=== PATIENT | female | born 1990 | race Two or more races ===

== ENCOUNTER 2021-03-25 08:05 | Inpatient (IN) ==
[2021-03-25] MEDS ORDERED: OXYTOCIN 30 UNITS/500 ML BAG IV PRN ×3 (08:32→16:53)
[2021-03-25 08:56] LABS: Hematocrit (blood only) 33.9 % (37-47); Hemoglobin 11.1 g/dL (12.0-16.0); Mean Corpuscular Hgb Conc 32.7 g/dL (32-36); Mean Corpuscular Volume 82.5 fL (80-100); Platelet Count 262 K/uL (130-400); RDW Coefficient of Variation 14.2 % (11.5-14.5); RDW Standard Deviation 42.5 fL (36.4-46.3); Red Blood Count 4.11 M/uL (4.2-5.4); White Blood Count 8.54 K/uL (4.8-10.8)
--- NOTE | 2021-03-25 09:22 | History & Physical Report ---
Date of Service March 25, 2021 Assessment & Plan (1) Encounter for elective induction of labor: (2) Gestational diabetes: (3) Need for rhogam due to Rh negative mother: (4) Encounter for supervision of normal in multigravida: Plan: admit, iv, labs. bsg now and then q2hr in active labor. start pit and then plan arom. epidural when desires. fhts categ 1. pt desires to proceed. Admission and Anticipated Discharge Date Admission Date: March 25, 2021 History of Present Illness Chief Complaint: planned elective induction Primary Care Provider: NO PCP 30yo at 39wks lionel presents to L&D for planned elective induction of labor. Having cough and wanting some meds for it. She did have covid on 02/20/21. She denies rom, vb. Reports +fm. No ctx. PNC c/b 1. GDM, diet controlled, last ac% 56 2. Rh neg, had rhogam, eval pp 3. Covid + 01/2021 PNL rh neg, ri, gbs neg OBH: x 1 GYNH: nl paps no std Allergies Allergy/AdvReac Type Severity Reaction Status Date / Time No Known Allergies Allergy Verified 03/24/21 14:26 Home Medications Medication Instructions Recorded Confirmed Type prenat.vits,laly,olm-itpi-auuvn 1 tab PO DAILY 08/13/20 03/25/21 History acetone (urine) test (Ketone Urine #50 ea 09/25/20 03/24/21 Rx Test) blood sugar diagnostic (OneTouch #150 ea 09/25/20 03/24/21 Rx Verio test strips) blood-glucose meter (OneTouch #1 ea 09/25/20 03/24/21 Rx Verio Meter) lancets 33 gauge (OneTouch Delica #150 ea 09/25/20 03/24/21 Rx Plus Lancet) Patient History Medical History History of chicken pox Vitamin D deficiency Surgical History No pertinent past surgical history Family History Denies family history of Ovarian cancer Breast cancer Colorectal cancer Social History (Updated 03/25/21 @ 08:24 by Fatou Basilio RN) Smoking Status: Never smoker Hx Alcohol Use: No Hx Substance Use: No Preferred Language: Panamanian Communication Ability: Effective Visual Impairment: No Limitations Hearing Ability: Normal Senior Telecommunications Specialist Required: No Beliefs That Will Affect Care: None marital status: marital status details: Viral Moncada (35) [phone] Current Living Situation: Family Current Living Situation Comment: Lives with and daughter current occupational status: unemployed current occupation: homemaker Other Information That Helps Us Care for You: No Feels Safe at Home: Yes Safety Concerns: Feels Safe At This Time Childhood Exposure to Second-Hand Smoke: No Diet Comment: No red meat Gender Identity: Female Assistive Devices: None Review of Systems as per Subjective / HPI Physical Exam Constitutional: WD/WN, vitals as above Respiratory: normal respiratory effort, lungs clear to auscultation Cardiovascular: Rate/Rhythm: regular rate and regular rhythm Gastrointestinal (Abdomen): soft gravid nt Musculoskeletal: no edema nontender calves Neurologic: grossly normal Psychiatric: A+Ox3, euthymic affect Genitourinary: OB Exam Abdomen: + estimated weight (7-8#) Manual OB Exam: + cervical dilation (2-3), + cervical effacement 50% and + station (mid soft) -2 OB Exam Monitor Tracing: + external FHT monitor used, + external uterine monitor used (irreg), + category I and + normal FHT variability Results & Data ([place]) Vital Signs (Past 12 Hours) Vital Signs Temp Pulse Resp BP 03/25/21 08:38 98.1 F 20 03/25/21 08:14 98.1 F 91 H 20 122/77 Code Status & VTE Plan VTE Prophylaxis Plan VTE Prophylaxis will be ordered: No Coding Level of Care Code None Diagnoses Encounter for elective induction of labor Z34.90 Gestational diabetes O24.419 Need for rhogam due to Rh negative mother Z29.13 Encounter for supervision of normal in multigravida Z34.80
[2021-03-25] MEDS: LACTATED RINGER'S 1,000 ML IV PRN ×2 (09:25→12:18)
[2021-03-25] MEDS: DEXTROMETHORPHAN POLYMR COMPLX 30 MG/5 ML UDP PO PRN ×2 (10:05→19:33)
[2021-03-25] MEDS ORDERED: ePHEDrine sulfate 50 MG/ML AMP ONE (11:40)
[2021-03-25] MEDS ORDERED: fentaNYL citrate 100 MCG/2 ML VIAL ONE (11:40)
[2021-03-25] MEDS ORDERED: fentaNYL 2MCG/ML ROPIVACAINE 1.25MG/ML 100 ML BAG EPI ONE (11:40)
[2021-03-25] MEDS ORDERED: SODIUM CHLORIDE 0.9% INJ 10 ML VIAL ONE (11:40)
[2021-03-25] MEDS ORDERED: BUPIVACAINE 0.25% 30 ML VIAL ONE (11:40)
--- NOTE | 2021-03-25 12:17 | Anesthesiology Consultation ---
Date of Service March 25, 2021 Assessment & Plan (1) Encounter for pre-operative examination: Chart Review Chart Review: Patient NOT seen in Pre Admission Testing and Acceptable Risk for Labor Epidural Consults Requested none History Height/Weight Height: 5 ft 3 in Weight: 87.657 kg Allergies Allergy/AdvReac Type Severity Reaction Status Date / Time No Known Allergies Allergy Verified 03/24/21 14:26 Medications Home Medications Medication Instructions Recorded Confirmed Last Taken prenat.vits,laly,vse-pvvr-ttili 1 tab PO DAILY 08/13/20 03/25/21 03/23/21 08:00 acetone (urine) test (Ketone Urine #50 ea 09/25/20 03/24/21 Unknown Test) blood sugar diagnostic (OneTouch #150 ea 09/25/20 03/24/21 Unknown Verio test strips) blood-glucose meter (OneTouch #1 ea 09/25/20 03/24/21 Unknown Verio Meter) lancets 33 gauge (OneTouch Delica #150 ea 09/25/20 03/24/21 Unknown Plus Lancet) Active Medications Generic Name Dose Route Start Last Admin Trade Name Freq PRN Reason Stop Dose Admin Dextromethorphan Polymer Complex 30 mg 03/25/21 09:23 03/25/21 10:05 Dextromethorphan Polymr Complx 30 Mg/5 Ml Udp PO 04/24/21 09:22 30 mg Q6H PRN Administration Cough Oxytocin 30 units in 500 mls @ 9 mls/hr 03/25/21 08:32 03/25/21 11:30 Pitocin IV 03/27/21 08:31 0.54 units/hr .Q24H PRN 9 mls/hr Labor Induction/Augmentation Titration Protocol 0.54 UNITS/HR Lactated Ringer's 1,000 mls @ 125 mls/hr 03/25/21 08:32 03/25/21 11:34 Lr IV 03/27/21 08:31 999 mls/hr .Q8H PRN Infusion L&D Protocol Protocol Past Medical History Medical History History of chicken pox Vitamin D deficiency Past Family History Family History Denies family history of Ovarian cancer Breast cancer Colorectal cancer Past Surgical History Surgical History No pertinent past surgical history Social History Smoking Status: Never smoker Hx Alcohol Use: No Hx Substance Use: No substance use type: does not use Physical Exam Vital Signs Last Vital Signs Temp 36.5 C 03/25/21 11:51 Pulse 88 03/25/21 12:08 Resp 20 03/25/21 11:51 BP 142/75 H 03/25/21 12:08 Pulse Ox 79 L 03/25/21 12:06 Testing Laboratory Results 03/25/21 08:42
--- NOTE | 2021-03-25 12:26 | Labor Progress Brief Note ---
Date of Service March 25, 2021 Subjective s/p arom , screaming in pain, wants epidural, arom was clear at about 11am, i did not have time to document that due to caring for ER patient. Assessment & Plan (1) Encounter for elective induction of labor: (2) Need for rhogam due to Rh negative mother: (3) Gestational diabetes: Plan: anesth here to provide epidural. fhts categ 1. c./w pit. Admission and Anticipated Discharge Date Admission Date: March 25, 2021 Physical Exam Constitutional: WD/WN, vitals as above Genitourinary: Manual OB Exam: + cervical dilation 3 cm, + cervical effacement 50%, + station -2 and + amniotic fluid (AROM) clear OB Exam Monitor Tracing: + external FHT monitor used, + external uterine monitor used (q2-4), + category I and + normal FHT variability Results & Data ([facility]) Vital Signs (Past 12 Hours) Vital Signs Temp Pulse Resp BP Pulse Ox 03/25/21 12:20 77 146/88 H 03/25/21 12:08 88 142/75 H 03/25/21 12:06 180 H 79 L 03/25/21 11:51 97.7 F 82 20 121/83 03/25/21 11:06 76 141/84 H 03/25/21 10:37 72 134/85 03/25/21 10:21 80 127/85 03/25/21 10:07 78 134/87 03/25/21 09:51 90 141/87 H 03/25/21 09:35 81 132/86 03/25/21 08:38 98.1 F 20 03/25/21 08:14 98.1 F 91 H 20 122/77 Coding Level of Care Code None Diagnoses Encounter for elective induction of labor Z34.90 Need for rhogam due to Rh negative mother Z29.13 Gestational diabetes O24.419
[2021-03-25] MEDS ORDERED: ePHEDrine sulfate 50 MG/ML AMP IV PRN (12:27)
[2021-03-25] MEDS ORDERED: diphenhydrAMINE 50 MG/ML VIAL IV PRN (12:27)
[2021-03-25] MEDS ORDERED: NALBUPHINE HCL INJ 10 MG/ML AMP IV PRN (12:27)
[2021-03-25] MEDS ORDERED: ONDANSETRON INJ 2 MG/ML 2 ML VIAL IV PRN (12:27)
[2021-03-25] MEDS ORDERED: fentaNYL 2MCG/ML ROPIVACAINE 1.25MG/ML 100 ML BAG EPI PRN (12:27)
[2021-03-25] MEDS ORDERED: NALOXONE HCL 1 MG in SODIUM CHLORIDE 0.9% 1000ML 1,000 ML IV PRN (12:27)
[2021-03-25] MEDS ORDERED: NALOXONE HCL 0.4 MG/1 ML VIAL/CARP IV PRN (12:27)
--- NOTE | 2021-03-25 15:34 | Delivery Summary ---
Vaginal Delivery Summary Date of Service March 25, 2021 Vaginal Delivery Summary and 2nd Degree LAC The patient dilated to complete and pushed to deliver a viable male infant Apgars 8 and 9 via over 2nd degree perineal laceration. Mouth and nose bulb suctioned at perineum. Loose nuchal x 1 reduced. Shoulders and body delivered with ease. Infant was vigorous and crying at . Cord clamped at 30 seconds of life and infant to maternal abdomen where the cord was then doubly clamped and cut. Placenta delivered spontaneously and intact, three-vessel cord. Hemostasis achieved with dilute pitocin and uterine massage and drainage of the bladder for approximately 200 cc under sterile conditions. Cervix and sulci intact. Laceration repaired in routine fashion with 3-0 vicryl. EBL 300 cc. Mother and baby stable recovery. [facility] [place] Vaginal Delivery Charge Delivery Type Details: and 2nd Degree LAC
[2021-03-25] MEDS ORDERED: OXYTOCIN 20 UNITS in LACTATED RINGER'S 1,000 ML IV SCH (15:45)
[2021-03-25] MEDS ORDERED: ACETAMINOPHEN 325 MG TAB PO PRN (16:53)
[2021-03-25] MEDS ORDERED: oxyCODONE/ACETAMINOPHEN 5mg/325mg TAB PO PRN (16:53)
[2021-03-25] MEDS ORDERED: HYDROCORTISONE ACETATE 25 MG SUPP PR PRN (16:53)
[2021-03-25] MEDS ORDERED: BENZOCAINE 20% AER SPR 82.5 GM CAN EXT PRN (16:53)
[2021-03-25] MEDS ORDERED: SUPERCREAM 0.870% 15 GM JAR EXT PRN (16:53)
[2021-03-25] MEDS ORDERED: DIPHTHERIA/TETANUS/PERTUSSIS 0.5 ML SYR/VIAL IM ONE (16:53)
--- NOTE | 2021-03-25 17:40 | Anesthesia Procedure Note ---
Date of Service March 25, 2021 Anesthesia Post Epidural Note Vital Signs Vital Signs: Temp Pulse Resp BP Pulse Ox 36.3 C L 109 H 20 143/85 H 93 03/25/21 15:30 03/25/21 17:37 03/25/21 16:57 03/25/21 17:37 03/25/21 15:37 Pain Intensity Perineal: Pain Intensity: 2 Notes Mental Status: alert / awake / arousable and participated in evaluation Nausea / Vomiting: adequately controlled Pain: adequately controlled Airway Patency, RR, SpO2: stable & adequate BP & HR: stable & adequate Hydration State: stable & adequate Neuraxial Anesthesia: was administered and sensory block is resolving Anesthetic Complications: no major complications apparent and Pt Satisfied with anesthetic care Epidural: Removed without complications and With tip intact Notes: Epidural site clean, dry and intact. No signs of edema, erythema or bruising at insertion site. Pt instructed to request anesthesia if she has residual lower extremity numbness or if she develops lower extremity pain or weakness, back pain or headache.
[2021-03-25] MEDS: IBUPROFEN 600 MG TAB PO PRN (18:40)
[2021-03-25] MEDS ORDERED: CALCIUM CARBONATE 500 MG CHEWABLE TAB PO PRN (21:25)
[2021-03-25] MEDS ORDERED: COUGH DROP (SUGAR FREE) LOZ 24 LOZ/1 BOX BUCCAL ONE (21:41)
[2021-03-25] MEDS: DOCUSATE SODIUM 100 MG CAP PO SCH (21:43)
--- NOTE | 2021-03-26 07:22 | Obstetrical Progress Note ---
Date of Service <Cee Mukherjee - Last Filed: 03/26/21 07:21> March 26, 2021 Assessment & Plan <Cee Mukherjee - Last Filed: 03/26/21 07:21> (1) Encounter for care and examination after delivery: 30 yo post op day1 from , doing well. -Continue routine post care. -vital signs reviewed and WNL (Tmax 36.8) -Blood Type A- recieved rhogam, GBS-, Rubella Immune -Encourage ambulation, monitor and control pain with Motrin, tylenol PRN, resume regular diet, monitor lochia -encourage breast feeding -hemoglobin 11.1 Day #:: 1 <Airam Cervantes MD, FACOG - Last Filed: 03/26/21 08:59> (1) Encounter for care and examination after delivery: Subjective <Cee Mukherjee - Last Filed: 03/26/21 07:21> Ambulation: ambulating normally Voiding: no voiding problems Passing Gas:: Yes Diet Tolerance:: regular diet Lochia:: Small Feeding Type:: breast feeding Current Pain Level(1-10): 4 (is getting pain medication) Review of Systems Negative fever chills Negative headache dizziness Negative chest pain palpitations SOB Negative nausea vomitting diarrhea constipation Negative numbness tingling rash swelling Physical Exam <Cee Mukherjee - Last Filed: 03/26/21 07:21> General: Alert, oriented. No acute distress. Cardiac: Regular rate and rhythm, no murmurs/rubs/gallops. Respiratory: Clear to auscultation bilaterally a/p, no wheezes/rales/rhonchi. No increased work of breathing. Symmetrical chest rise. No respiratory distress. Abdomen: Soft, nontender, nondistended. Bowel sounds present. Uterus: Uterine fundus firm, palpable 2 cm below umbilicus. Lower Extremities: No lower extremity edema or swelling. No deep calf pain. Sherry's negative bilaterally.. Results & Data ([facility]) <Cee Mukherjee - Last Filed: 03/26/21 07:21> Vital Signs (Past 12 Hours) Vital Signs Temp Pulse Resp BP 03/26/21 03:00 36.8 C 90 18 115/67 02/02/22 23:30 36.8 C 87 18 117/75 <Airam Cervantes MD, FACOG - Last Filed: 03/26/21 08:59> Co-Signing Physician Notes Resident Physician Supervision Note: I was present with Dr. Mukherjee during the history and exam. I discussed the case with the resident and agree with the findings and plan as documented in the note. Any exceptions or clarifications are listed here: c/o cough, has meds ordered enc to take, complians of cramps, has meds ordered enc to take. enc to walk around. voiding, ambul, eating without issues. routine pp care. breast, rh neg, needs rhogam prior to dc, RI. Documented By: Airam Cervantes MD, FACOG Resident Activity Tracking <Cee Mukherjee DO - Last Filed: 03/26/21 07:21> Resident Involvement: Resident Care Provided Care Provided: Adult Hospital Medicine
[2021-03-26] MEDS: DOCUSATE SODIUM 100 MG CAP PO SCH ×2 (08:14→19:23)
[2021-03-26] MEDS: PRENATAL VITAMIN 1 TAB PO SCH (08:15)
[2021-03-26] MEDS: IBUPROFEN 600 MG TAB PO PRN ×3 (08:15→23:18)
[2021-03-26] MEDS: DEXTROMETHORPHAN POLYMR COMPLX 30 MG/5 ML UDP PO PRN ×2 (08:22→15:43)
[2021-03-26 20:50] VITALS: O2SAT 99
[2021-03-27 00:10] VITALS: BP 138/83; PULSE 85; TEMP 97.7
[2021-03-27] MEDS: DEXTROMETHORPHAN POLYMR COMPLX 30 MG/5 ML UDP PO PRN ×2 (00:28→08:55)
--- NOTE | 2021-03-27 06:19 | Obstetrical Progress Note ---
Date of Service <Cee LonnyDO - Last Filed: 03/27/21 06:37> March 27, 2021 Assessment & Plan <Ceejens Mukherjee DO - Last Filed: 03/27/21 06:37> (1) Encounter for care and examination after delivery: 30 yo post op day2 from , doing well. -Continue routine post care. -vital signs reviewed and WNL (Tmax 36.8) -Blood Type A- recieved rhogam, GBS-, Rubella Immune -Encourage ambulation, monitor and control pain with Motrin, tylenol PRN, resume regular diet, monitor lochia -encourage breast feeding -hemoglobin 11.1 -patient comfortable with discharge Day #:: 2 <Sherry Smith MD - Last Filed: 03/27/21 07:55> (1) Encounter for care and examination after delivery: Subjective <Cee LonnyDO - Last Filed: 03/27/21 06:37> Ambulation: ambulating normally Voiding: no voiding problems Passing Gas:: Yes Diet Tolerance:: regular diet Lochia:: Small Feeding Type:: breast feeding Current Pain Level(1-10): 2 Review of Systems Negative fever chills Negative headache dizziness Negative chest pain palpitations SOB Negative nausea vomitting diarrhea constipation Negative numbness tingling rash swelling Physical Exam <Cee LonnyDO - Last Filed: 03/27/21 06:37> General: Alert, oriented. No acute distress. Cardiac: Regular rate and rhythm, no murmurs/rubs/gallops. Respiratory: Clear to auscultation bilaterally a/p, no wheezes/rales/rhonchi. No increased work of breathing. Symmetrical chest rise. No respiratory distress. Abdomen: Soft, nontender, nondistended. Bowel sounds present. Uterus: Uterine fundus firm, palpable 2 cm below umbilicus. Lower Extremities: No lower extremity edema or swelling. No deep calf pain. Sherry's negative bilaterally.. Results & Data ([facility]) <Cee LonnyDO - Last Filed: 03/27/21 06:37> Vital Signs (Past 12 Hours) Vital Signs Temp Pulse Resp BP Pulse Ox 03/26/21 23:10 36.5 C 85 20 138/83 99 03/26/21 20:30 36.9 C 87 16 120/79 99 <Sherry Smith MD - Last Filed: 03/27/21 07:55> Co-Signing Physician Notes Resident Physician Supervision Note: I interviewed and examined the patient. Discussed with Dr. Mukherjee and agree with findings and plan as documented in the note. Any exceptions or clarifications are listed here: [ ] Documented By: Sherry Smith MD, FACOG Resident Activity Tracking <Cee Mukherjee DO - Last Filed: 03/27/21 06:37> Resident Involvement: Resident Care Provided Care Provided: Adult Hospital Medicine
[2021-03-27] MEDS: DOCUSATE SODIUM 100 MG CAP PO SCH (08:55)
[2021-03-27] MEDS: PRENATAL VITAMIN 1 TAB PO SCH (08:55)
[2021-03-27] MEDS: IBUPROFEN 600 MG TAB PO PRN (08:55)
== END 2021-03-27 15:00 | disposition home or self-care (01) | DRG 807 ==
LOC: 4S1 08:05 → 4S2 18:55
DX: Z86.16 Personal history of COVID-19; O70.1 Second degree perineal laceration during delivery; Z37.0 Single live birth; Z3A.37 37 weeks gestation of pregnancy; O24.420 Gestational diabetes mellitus in childbirth, diet controlled; O26.893 Other specified pregnancy related conditions, third trimester; O69.81X0 Labor and delivery complicated by cord around neck, without compression, not applicable or unspecified